=== PATIENT | male | born 1980 | race Caucasian/White ===

== ENCOUNTER 2017-05-23 08:33 | Outpatient (CLI) | payer OTHER ==
--- NOTE | 2017-05-23 11:49 | CT ---
CT ORBITS NONCONTRAST: Date: 05-23-17 History: 36-year-old male with esotropia H50, strabismus, and high myopia. FINDINGS: The bilateral extraocular muscles are symmetrical and within normal limits in size. The optic nerves are also bilaterally symmetrical in size. There is no intraorbital edema or mass. The bilateral globe s are enlarged. The lenses are bilaterally absent. The visualized portions of the maxillary, sphenoid , ethmoid, and right frontal sinuses are clear. Mild mucosal thickening at the left frontal recess. T he rest of the left frontal sinus is clear. There is a right sided cochlear implant, with lead in the basal and middle turns of the cochlea. There is a right sided intact-canal wall mastoidectomy defect associated with this, incompletely imaged. IMPRESSION: 1. Bilateral macrophthalmia. 2. No asymmetry of the extraocular muscles. 3. Status post bilateral cataract surgery. 4. Right cochlear implant and right wall-up mastoidectomy. POS: [facility]
== END 2017-05-23 08:34 | disposition home or self-care (01) ==
LOC: SCSCT 08:33
PROVIDERS: ATTEND Ophthalmology
DX: H50.00 Unspecified esotropia (principal); Q00-Q99 Congenital malformations, deformations and chromosomal abnormalities; Z96.21 Cochlear implant status; Z98.890 Other specified postprocedural states
CPT/HCPCS: 70480

== ENCOUNTER 2017-07-16 08:06 | Outpatient (CLI) | payer OTHER ==
--- NOTE | 2017-07-16 08:40 | RAD ---
LEFT HIP 2 VIEWS: Date: 07/16/17 HISTORY: Left hip pain. FINDINGS: Mild joint space narrowing, subchondral sclerosis, and osteophytosis. Femoral head contour is maintai kehinde. No acute fracture, dislocation, or aggressive osseous erosions. IMPRESSION: Mild osteoarthritis left hip. POS: [facility]
--- NOTE | 2017-07-16 09:20 | CT ---
CT LUMBAR SPINE: Date: 07/16/17 COMPARISON: None. HISTORY: Low back pain with numbness down both legs, lumbar stenosis with neurogenic claudication. TECHNIQUE: Serial axial CT imaging is obtained at 3 mm intervals from lower thoracic spine through lower sacrum without contrast. Coronal and sagittal reformatted imaging obtained. FINDINGS: Evaluation for central canal and/or neural foraminal stenosis is limited on routine CT. There is no anterolisthesis or retrolisthesis seen within the lumbar spine. Incidental note is made of an exophytic small hypodense lesion emanating from the posterior mid pole of the right kidney measuring in the 1.0 cm range. Its Hounsfield units are slightly above that expec karen for a simple cyst and thus, follow-up renal ultrasound is suggested. T12-L1: No osseous cause of significant central canal or neural foraminal stenosis. L1-2: Mild bilateral facet hypertrophy, right greater than left. No osseous cause of significant central ca nal or neural foraminal stenosis. L2-3: Mild bilateral facet hypertrophy. No osseous cause of significant central canal or neural foraminal s tenosis. L3-4: Prominent bilateral facet hypertrophy. Mild disc bulge. Probable mild central canal stenosis and mild bilateral neural foraminal stenosis. L4-5: Prominent bilateral facet hypertrophy with mild bilateral neural foraminal stenosis, left greater marcella n right. No osseous cause of significant central canal stenosis. L5-S1: Severe right-sided facet hypertrophy noted with osteophyte encroachment on the right neural foramen a nd severe right neural foraminal stenosis. No osseous cause of significant central canal or left neur al foraminal stenosis. No acute osseous abnormality. No worrisome lytic or blastic bone lesion. IMPRESSION: 1. Multilevel degenerative changes noted within the lumbar spine, which include severe facet hypertr ophy on the right at L5-S1 with osteophyte encroachment on the right neural foramen and associated si gnificant neural foraminal stenosis. 2. Small hypodense lesion within the right kidney, for which follow-up renal ultrasound is advised. CODE T. POS: [facility]
== END 2017-07-16 08:07 | disposition home or self-care (01) ==
LOC: TBSIIMAG 08:06
PROVIDERS: ATTEND Anesthesiology Pain Medicine
DX: M48.062 Spinal stenosis, lumbar region with neurogenic claudication (principal); M47.896 Other spondylosis, lumbar region; M46.96 Unspecified inflammatory spondylopathy, lumbar region; M99.81 Other biomechanical lesions of cervical region; M25.78 Osteophyte, vertebrae; M16.12 Unilateral primary osteoarthritis, left hip; N28.9 Disorder of kidney and ureter, unspecified
CPT/HCPCS: 72131

== ENCOUNTER 2017-07-27 08:10 | Outpatient (CLI) | payer OTHER ==
--- NOTE | 2017-07-27 10:16 | ULT ---
BILATERAL RENAL ULTRASOUND: Date: 07/27/17 COMPARISON: CT of lumbar spine without contrast dated 07/16/17. HISTORY: Evaluate renal lesion identified on prior CT examination within the posterior aspect of mid pole righ t kidney. TECHNIQUE: Multiplanar Pérez scale sonographic imaging of the kidneys and urinary bladder obtained. FINDINGS: Body habitus limits detailed evaluation of both kidneys, as does shadowing from bowel gas. Right kidney measures 14.4 x 5.6 x 5.7 cm. Left kidney measures 14.5 x 5.6 x 5.8 cm. No renal mass, h ydronephrosis, or stone is appreciated on this exam. Urinary bladder appears grossly unremarkable. The CT examination, which partially visualized the right kidney, demonstrates a 1.1 cm exophytic hypo dense lesion with Hounsfield unit estimates of approximately 10-15. This suggests that this likely re presents a small cyst. IMPRESSION: Previously noted small hypodense lesion emanating from right kidney on recent CT examination cannot b e visualized on ultrasound, likely secondary to technique. A cyst is favored. As a conservative measu re, a follow-up CT examination of the abdomen is suggested in 6 months-1 year is advised to confirm s tability. POS: [facility]
== END 2017-07-27 08:11 | disposition home or self-care (01) ==
LOC: SCSULT 08:10
PROVIDERS: ATTEND Family Medicine
DX: N28.1 Cyst of kidney, acquired (principal)
CPT/HCPCS: 76770

== ENCOUNTER → 2017-10-09 | Day surgery (SDC) | payer OTHER ==
[2017-10-05 11:36] VITALS: BMI 43.9
[~2017-10-09] MED LIST: Ketamine 50 MG/ML VIAL ONE; PROPOFOL 200 MG/20 ML VIAL ONE
--- NOTE | 2017-10-09 12:31 | OP ---
DATE OF PROCEDURE: 10/09/2017 GI ENDOSCOPY NOTE SURGEON: Luther Ko M.D. MATERIALS PLANNING MANAGER SURGEON: None. PROCEDURE: Esophagogastroduodenoscopy with balloon dilation of the esophagus. INDICATIONS: 1. Esophageal dysphagia. 2. Followup of esophageal stricture. MEDICATIONS: See anesthesia record. FINDINGS: After discussion of the risks, benefits, and alternatives of the procedure, informed conse nt was obtained and witnessed. Pre-endoscopic cardiopulmonary examination was satisfactory. Timeout was performed before sedation was achieved. Sedation was achieved with anesthesia assistance in the endoscopy unit. A Pentax adult upper endoscope was placed into the oropharynx and passed through th e cricopharyngeus under direct visualization. The proximal, mid, and distal esophageal mucosa all ap peared normal at the GE junction, which is at 42 cm from the incisors. There is some circumferential scar tissue representing mild stricture. This is essentially unchanged in appearance from his prior examinations. The stricture is mild with easy passage of the endoscope beyond the stricture. The e ndoscope was passed beyond the GE junction and into the stomach. Forward and retroflexed views of th e entire gastric mucosa were obtained. The gastric mucosa was normal. The endoscope was advanced th rough the pylorus and into the first and second portions of the duodenum, which also appeared normal. At this point, we used a, through the scope, balloon dilator and passed this across the GE junction . We serially dilated the esophagus at the GE junction to sizes of 18 mm, then 19 mm, then finally t o 20 mm. Following dilation, the GE junction was again inspected. There was some mild mucosal disru ption at the area. The upper endoscope was then completely withdrawn and the patient allowed to ruel fouzia. The patient tolerated the procedure well. There were no immediate post-procedure complications . IMPRESSION: 1. Distal esophageal stricture at the GE junction, mild, successfully serially dilated with balloon to 18, then 19, then 20 mm. 2. Otherwise, normal esophagogastroduodenoscopy. RECOMMENDATIONS: 1. Continue daily PPI. 2. Follow up in the GI clinic as needed.
== END ==
LOC: SDC 09:10
PROVIDERS: ATTEND Internal Medicine
PROC: 0D758ZZ Dilation of Esophagus, Via Natural or Artificial Opening Endoscopic (ICD-10-PCS; principal; 2017-10-09)
DX: K22.2 Esophageal obstruction (principal); Z88.2 Allergy status to sulfonamides; Z79.899 Other long term (current) drug therapy

== ENCOUNTER 2018-10-11 08:49 | Outpatient (CLI) | payer OTHER ==
[2018-10-11] MEDS ORDERED: Iopamidol 370 76% 100 ML VIAL ONE (09:00)
--- NOTE | 2018-10-11 12:24 | CT ---
CT ABDOMEN WITH AND WITHOUT IV CONTRAST: Date: 10/11/18 HISTORY: Kidney cysts. FINDINGS: There is mild infiltrate versus atelectatic change at the left lung base. The liver demonstrates decr eased attenuation compared to the spleen consistent with fatty infiltration. No hepatic mass or abnor mal biliary ductal dilatation is seen. No calcified gallstones are noted. The spleen, pancreas, right adrenal gland, and left kidney are normal. There is a 15 mm macroscopic fat containing left adrenal nodule consistent with lipoma or myelolipoma . There is a 1.0 cm exophytic mass arising from the posterior cortex of the right kidney with low atten uation values and no postcontrast enhancement, consistent with cyst. No renal calculi are seen on eit her side. There is normal contrast excretion by the kidneys into the ureters. No hydroureteronephrosi s identified. No free air, free fluid, or lymphadenopathy seen in the abdomen. The aorta is of normal caliber. Ther e are mild degenerative changes in the spine. IMPRESSION: 1. Fatty liver. 2. 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 3. Right renal cyst. POS: [facility]
== END 2018-10-11 08:50 | disposition home or self-care (01) ==
LOC: SCSCT 08:49
PROVIDERS: ATTEND Family Medicine
DX: N28.1 Cyst of kidney, acquired (principal); K76.0 Fatty (change of) liver, not elsewhere classified
CPT/HCPCS: 74170

== ENCOUNTER 2018-10-21 09:59 | Inpatient (IN) | payer OTHER ==
[2018-10-21 10:38] LABS: #Basophils 0.1 thou/uL (0.0-0.2); #Eosinphils 0.2 thou/uL (0.0-0.7); #Lymphocytes 1.6 thou/uL (1.20-3.40); #Monocytes 0.4 thou/uL (0.11-0.59); #Neutrophils 5.6 thou/uL (1.40-6.50); %Basophils 0.8 % (0.0-1.0); %Eosinophils 2.9 % (0.0-10.0); %Lymphocytes 19.9 % (21.0-51.0); %Monocytes 5.4 % (0.0-10.0); Hemoglobin 16.6 g/dL (14.0-18.0); Mean Corpuscular HGB CONC 34.3 g/dL (32.0-36.0); Mean Corpuscular Hemoglobin 31.1 pg (27.0-31.0); Mean Corpuscular Volume 90.7 fL (78.0-98.0); Platelet Count 256 thou/uL (130-400); Red Blood Cell (RBC) Count 5.34 mill/uL (4.70-6.10); White Blood Cell (WBC) Count 7.9 thou/uL (4.8-10.8)
[2018-10-21] MEDS ORDERED: Enoxaparin Sodium 30 MG/0.3 ML SYRINGE ONE (10:59)
[2018-10-21] MEDS ORDERED: Enoxaparin Sodium 100 MG/ML SYRINGE ONE (10:59)
[2018-10-21 11:01] LABS: ALT (SGPT) 50 U/L (8-55); AST (SGOT) 30 U/L (5-34); Albumin 4.6 g/dL (3.5-5.0); Alkaline Phosphatase 71 U/L (40-150); Anion Gap 12 mmol/L (10-20); BUN (Urea Nitrogen) 10 mg/dL (8.9-20.6); Bilirubin, Total 0.8 mg/dL (0.2-1.2); Calc. Creatinine Clearance 0 mL/min (70-130); Calcium 9.9 mg/dL (7.8-10.44); Carbon Dioxide 29 mmol/L (22-29); Chloride 102 mmol/L (98-107); Estimated GFR-MDRD 75; Globulin 3.5 g/dL (2.4-3.5); Glucose 124 mg/dL (70-105); Lipase 34 U/L (8-78); Potassium 3.9 mmol/L (3.5-5.1); Protein, Total 8.1 g/dL (6.0-8.3); Sodium 139 mmol/L (136-145)
[2018-10-21] MEDS ORDERED: Enoxaparin Sodium 40 MG/0.4 ML SYRINGE ONE (11:10)
--- NOTE | 2018-10-21 11:26 | CT ---
CT ANGIO CHEST PERFORMED WITH IV CONTRAST ENHANCEMENT WITH 3D RECONSTRUCTIONS: Date: 10/21/18 HISTORY: Chest pain. FINDINGS: There is some minimal linear atelectasis or scarring in the lung bases. There is no infiltrative proc ess or pulmonary nodules. There is no significant mediastinal or hilar adenopathy. The thoracic aorta is normal in caliber. There is good pulmonary artery opacification with evidence for extensive upper and lower lobe pulmona ry emboli involving the segmental and subsegmental branches. No saddle embolus. No evidence of right ventricular strain. The visualized liver parenchyma shows no focal findings. There is suggestion of fatty change. IMPRESSION: Extensive bilateral pulmonary emboli. Findings telephoned to Dr. Patel. CODE CR. POS: [facility]
[2018-10-21] MEDS ORDERED: ISOVUE-370 76%-LOCM 1 ML ONE (13:13)
[2018-10-21 13:41] LABS: Troponin I Less than 0.010 ng/mL (< 0.028)
[2018-10-21 14:38] VITALS: BMI 43.3
[2018-10-21] MEDS ORDERED: Acetaminophen 325 MG TAB PO PRN (16:37)
[2018-10-21] MEDS ORDERED: Ondansetron PF 4 MG/2 ML Vial IVP PRN (16:37)
[2018-10-21] MEDS ORDERED: Ondansetron ODT 4 MG TAB PO PRN (16:37)
[2018-10-21] MEDS ORDERED: Dextrose 50% Abboject 50 ML SYRINGE SLOW IVP PRN (16:50)
[2018-10-21] MEDS ORDERED: Dextrose 5% in Water 1,000 ML IV PRN (16:50)
[2018-10-21] MEDS ORDERED: HumaLOG 300 UNITS/3 ML VIAL SC PRN ×2 (16:50)
[2018-10-21 16:56] LABS: Troponin I 0.011 ng/mL (< 0.028)
[2018-10-21] MEDS: Apixaban 5 MG TAB PO SCH (21:07)
--- NOTE | 2018-10-21 21:53 | HP ---
PRIMARY CARE PHYSICIAN: Dr. Workman. CHIEF COMPLAINT: Shortness of breath. HISTORY OF PRESENT ILLNESS: Mr. Aguero is a 38-year-old male with past medical history of diabetes mellitus type 2, gout, hyperlipidemia, who had presented to [facility] earlier today after he experienced some chest pain, right shoulder pain and shortness of breath that started late last night. He states that his chest pain worsened with deep breathing. He states that he had traveled to [place] and [facility] roughly 1-1/2 weeks ago and [place] last week and he had returned home last prior to noticing symptoms start the next morning. He states that the symptoms gradually worsened up until late last night. He underwent a CTA of the chest, which revealed extensive bilateral pulmonary emboli. Therefore, he was treated with subcutaneous Lovenox. The patient's blood pressure and other vital signs remained stable and he had remained stable on room air. He had denied any fever, chills, any headache, blurred vision, dizziness, any further chest pain, palpitations, shortness of breath, abdominal pain, nausea, or vomiting. He had denied any history of blood clots in the past; however, does state that he has a strong family history. REVIEW OF SYSTEMS: All other systems reviewed and found to be negative unless mentioned in the HPI. PAST MEDICAL HISTORY: Hyperlipidemia, diabetes mellitus type 2, gout, sleep apnea, wears a CPAP at night. PAST SURGICAL HISTORY: Cochlear implant on the left, and cataract surgery. PSYCHIATRIC HISTORY: None. SOCIAL HISTORY: The patient denies alcohol, tobacco, or illicit drug use. He currently lives at home with his girlfriend. KNOWN ALLERGIES: Sulfa. CURRENT HOME MEDICATIONS: 1. Omeprazole 20 mg oral b.i.d. 2. Allopurinol 200 mg oral daily. 3. Atorvastatin 5 mg oral daily. 4. Metformin 750 mg oral daily. 5. Vitamin D3 5000 units p.o. daily. PHYSICAL EXAMINATION: VITAL SIGNS: BP 132/76, pulse 105, respirations 20, temperature 97.6, O2 saturation 97% on room air. GENERAL: The patient is awake, alert, and oriented x3. He is currently lying comfortably in bed and in no acute distress at this time. HEENT: Atraumatic, normocephalic. Pupils are round and reactive to light. Extraocular muscles intact. Moist mucous membranes noted. NECK: Soft and supple. Trachea midline. CARDIOVASCULAR: Positive S1 and S2. Regular rate and rhythm. No murmur auscultated. RESPIRATORY: Clear to auscultation bilaterally. No wheezes, rales, or rhonchi. ABDOMEN: Soft, nontender. Bowel sounds present. MUSCULOSKELETAL: Strength 5+ bilaterally upper and lower extremities. Moves all extremities equal. Pedal and radial pulses 2+ bilaterally. No edema noted. NEUROLOGIC: Cranial nerves 2 through 12 grossly intact. No focal deficits noted. Speech intact and normal. Gait not assessed. SKIN: Warm, dry and intact. No rash. No ulceration noted. PSYCHIATRIC: Good mood and affect. LABORATORY DATA: WBC 7.9, RBC 5.34, hemoglobin 16.6, hematocrit 48.4, platelet 256. INR 1.0, PT 13.0. Sodium 139, potassium 3.9, anion gap 12, BUN 10, creatinine 1.10, estimated GFR 75, glucose 124. Troponin less than 0.010 x2. Lipase 34. DIAGNOSTIC IMAGING: CTA of the chest revealed extensive bilateral pulmonary emboli. ASSESSMENT AND PLAN: 1. New bilateral pulmonary embolisms. The patient was given Lovenox in the ED and will be now started on Eliquis 10 mg p.o. b.i.d. for 7 days and then 5 mg oral twice daily thereafter. He will be monitored overnight for any signs of bleeding. 2. Hyperlipidemia. Continue home statin. 3. Diabetes mellitus type 2. Hold dose of metformin and continue with insulin sliding scale with frequent Accu-Cheks. 4. Deep venous thrombosis and gastrointestinal prophylaxis. 5. Code status, full code. DISPOSITION: The patient will likely be discharged home tomorrow and he will likely follow up with his PCP in the next 1 to 2 weeks. Job ID: [id number]
[2018-10-22 04:07] LABS: #Basophils 0.1 thou/uL (0.0-0.2); #Eosinphils 0.2 thou/uL (0.0-0.7); #Monocytes 0.6 thou/uL (0.11-0.59); #Neutrophils 5.6 thou/uL (1.40-6.50); %Basophils 1.1 % (0.0-1.0); %Eosinophils 2.8 % (0.0-10.0); %Lymphocytes 23.7 % (21.0-51.0); %Monocytes 6.4 % (0.0-10.0); %Neutrophils 65.9 % (42.0-75.0); Hemoglobin 15.4 g/dL (14.0-18.0); Mean Corpuscular HGB CONC 33.8 g/dL (32.0-36.0); Mean Corpuscular Hemoglobin 31.3 pg (27.0-31.0); Mean Corpuscular Volume 92.6 fL (78.0-98.0); Mean Platelet Volume 7.5 fL (7.4-10.4); Platelet Count 281 thou/uL (130-400); RBC Distribution Width 12.1 % (11.5-14.5); Red Blood Cell (RBC) Count 4.91 mill/uL (4.70-6.10); White Blood Cell (WBC) Count 8.5 thou/uL (4.8-10.8)
[2018-10-22 04:20] LABS: Anion Gap 15 mmol/L (10-20); BUN (Urea Nitrogen) 11 mg/dL (8.9-20.6); Calc. Creatinine Clearance 241 mL/min (70-130); Calcium 9.2 mg/dL (7.8-10.44); Carbon Dioxide 24 mmol/L (22-29); Chloride 105 mmol/L (98-107); Estimated GFR-MDRD Greater than 90; Glucose 101 mg/dL (70-105); Potassium 3.7 mmol/L (3.5-5.1); Sodium 140 mmol/L (136-145)
--- NOTE | 2018-10-22 08:55 | ULT ---
BILATERAL LOWER EXTREMITY VENOUS DUPLEX EXAM: Date: 10/22/18 Deep veins of both lower extremities evaluated with ultrasound and Doppler. Color Doppler, spectral a nalysis, and compression studies performed. INDICATION: Pulmonary emboli confirmed on CTA chest. Assess for deep vein thrombosis. FINDINGS: Deep veins of both lower extremities show normal blood flow and compression. No evidence of deep veno us thrombosis identified. IMPRESSION: No evidence of lower extremity deep venous thrombosis identified. POS: [facility]
[2018-10-22] MEDS ORDERED: Allopurinol 100 MG TAB PO SCH (09:00)
[2018-10-22] MEDS ORDERED: Atorvastatin Calcium 10 MG TAB PO SCH (09:00)
[2018-10-22] MEDS ORDERED: metFORMIN 500 MG TAB PO SCH (09:00)
[2018-10-22] MEDS: Apixaban 5 MG TAB PO SCH (09:10)
[2018-10-22 09:24] VITALS: BP 120/68; TEMP 98.1
--- NOTE | 2018-10-22 09:30 | ULT ---
BILATERAL UPPER EXTREMITY DEEP VEIN ULTRASOUND WITH GRAYSCALE AND DOPPLER COLORFLOW: INDICATIONS: History of pulmonary emboli. FINDINGS: The imaged deep venous system of each upper extremity is performed, which reveals patency and appropr iate compressibility/flow. IMPRESSION: No deep venous thrombosis of the bilateral upper extremities visualized. POS: [facility]
--- NOTE | 2018-10-22 22:17 | DIS ---
DATE OF ADMISSION: 10/21/2018 DATE OF DISCHARGE: 10/22/2018 DISCHARGE DIAGNOSIS: Acute pulmonary embolism. HISTORY OF PRESENT ILLNESS: The patient is a 38-year-old male, who initially traveled abroad, returned back from [place] and [facility] earlier this month, started having some shortness of breath and chest pain. He was seen in the ER, was found to have pulmonary embolism. His troponin x2 were negative. He did have a CTA, which indicated extensive bilateral pulmonary emboli. There was no evidence of right ventricular straining on the CAT scan. The patient felt well. He also had lower extremity venogram, which were normal and did not indicate any deep vein thrombosis. The patient was initially put on Lovenox. He was then transitioned to Eliquis, which he will take 10 mg twice a day for 7 days followed by 5 mg twice a day. I have advised him to follow up with his primary care doctor and he understands that. MEDICATIONS: 1. Eliquis 10 mg b.i.d. for 7 days. After that, he is going to take 5 mg b.i.d. 2. Vitamin D 5000 units daily. 3. Metformin 750 daily. 4. Allopurinol 200 mg daily. 5. Atorvastatin 5 mg daily. 6. Prilosec 20 mg b.i.d. PHYSICAL EXAMINATION: VITAL SIGNS: Temperature 98.1, 80, 20, 95% on room air, 120/68. GENERAL: He is awake, alert, and oriented x3. Does not appear in distress. CV: S1, S2 present. No murmurs, rubs, or gallops. ABDOMEN: Soft and nontender. Bowel sounds are present x2. Job ID: [id number]
[2018-10-29] MEDS ORDERED: Apixaban 5 MG TAB PO SCH (09:00)
== END 2018-10-22 11:01 | disposition home or self-care (01) | DRG 176 ==
LOC: ERS 09:59 → 2SE 14:12
PROVIDERS: ADMIT Family Medicine; ATTEND Family Medicine
DX: I26.99 Other pulmonary embolism without acute cor pulmonale (principal); Z68.41 Body mass index [BMI] 40.0-44.9, adult; E11.9 Type 2 diabetes mellitus without complications; E78.5 Hyperlipidemia, unspecified; M19.90 Unspecified osteoarthritis, unspecified site; M10.9 Gout, unspecified; G47.30 Sleep apnea, unspecified; E66.01 Morbid (severe) obesity due to excess calories; Z88.2 Allergy status to sulfonamides; Z98.42 Cataract extraction status, left eye
CPT/HCPCS: 36415; 36416; 71275; 80048; 80053; 83690; 84484; 85025; 85610; 93005; 93970; J1650; Q9966

== ENCOUNTER 2018-11-14 14:21 | Outpatient (CLI) | payer OTHER | END 2018-11-14 14:22 | disposition home or self-care (01) | LOC: ULT 14:21 | PROVIDERS: ATTEND Family Medicine | DX: I26.99 Other pulmonary embolism without acute cor pulmonale (principal); I08.1 Rheumatic disorders of both mitral and tricuspid valves | CPT/HCPCS: 93306 ==

== ENCOUNTER 2019-07-24 12:36 | Outpatient (CLI) | payer OTHER ==
--- NOTE | 2019-07-24 13:19 | CT ---
Exam: CT cervical spine without contrast HISTORY: Cervical radicular pain. Pain radiates to left shoulder COMPARISON: None FINDINGS: No craniocervical dissociation. Appropriate alignment of the lateral masses of C1 and C2. Intact odon toid process. Appropriate alignment of the facets. Soft tissue neck structures: No mass, lymphadenopathy or hematoma. No prevertebral soft tissue swelli ng. Upper mediastinum and lung apices: Unremarkable. Central spinal canal: Limited evaluation of the contents of the central spinal canal and neural vanita clinton due to technique. C2-C3: Loss of disc space height without significant central canal stenosis. Moderate right and left neural foraminal narrowing due to uncovertebral hypertrophy. C3-C4: Broad-based disc osteophyte complex. Mild central canal stenosis. Mild to moderate bilateral n eural foraminal narrowing due to uncovertebral hypertrophy. C4-C5: Broad-based disc osteophyte complex abuts the thecal sac. Mild central canal stenosis. Mild ri ght neural foramina due to uncovertebral hypertrophy. Patent left neural foramen. C5-C6: Broad-based disc osteophyte complex abuts the thecal sac. Mild mass effect upon the right jaiden cord. Mild central canal stenosis. Mild right neural foraminal narrowing due to uncovertebral hypertrophy. Left neural foramen is patent. C6-C7: Broad-based disc osteophyte complex abuts the thecal sac. No significant central canal stenosi s. Neural foramina are patent. C7-T1: No significant central canal stenosis or significant neural foraminal narrowing. Vertebral bodies: Cervical spine vertebral body height is maintained. No fracture. IMPRESSION: Multilevel disc osteophyte complexes. No evidence of high-grade central canal stenosis. Varying degre es of neural foraminal narrowing as detailed above. Transcribed Date/Time: 07/24/2019 1:33 PM
--- NOTE | 2019-07-24 13:45 | CT ---
CT OF THE LUMBAR SPINE 07/24/19 PROVIDED CLINICAL HISTORY: Back pain and bilateral leg pain. FINDINGS: Comparison is made with the CT examination dated 07/16/17. Lumbar alignment remains normal. Five lumbar vertebral bodies are again assumed. Vertebral body and i ntervertebral disc space heights appear maintained. There is no evidence for fracture. No evidence fo r concerning lytic or blastic bony lesion. The visualized extraspinal soft tissues demonstrate a stab le unenhanced CT appearance. At L1-2, there is no significant central canal or foraminal narrowing apparent. Mild bilateral facet arthritis. At L2-3, there is no significant central canal or foraminal narrowing apparent. Mild bilateral facet arthritis. At L3-4, there is bilateral facet arthritis and a broad based disc bulge. There is no significant carlos tral canal or foraminal narrowing apparent. At L4-5, there is advanced left facet arthritis and mild right facet arthritis. This results in sever e stenosis of the left neural foramen and appears more conspicuous than on prior, with potential for impingement on the exiting left L4 nerve root now demonstrated. At L5-S1, there is advanced bilateral facet arthritis, producing stable severe right foraminal narrow ing with associated impingement on the exiting right L5 nerve root. There is no significant left fora merced narrowing. There is a small focus of increased density seen posterior to the L5 vertebral body in the mid portion in the midline seen to best advantage on sagittal image 48 and axial image 64 that may reflect a small sequestered disc fragment. This measures about 5 mm in AP and transverse dimensi ons. IMPRESSION: 1. Lumbar facet arthritis producing foraminal narrowing as described, with increase in conspicui ty at L4-5 as described. 2. Possible sequestered disc fragment at posterior aspect of L5 as described. POS: [facility]
== END 2019-07-24 12:37 | disposition home or self-care (01) ==
LOC: TBSIIMAG 12:36
PROVIDERS: ATTEND Nurse Practitioner Family
DX: M48.061 Spinal stenosis, lumbar region without neurogenic claudication (principal); M47.816 Spondylosis without myelopathy or radiculopathy, lumbar region; M54.12 Radiculopathy, cervical region; M25.78 Osteophyte, vertebrae; M48.02 Spinal stenosis, cervical region; M47.817 Spondylosis without myelopathy or radiculopathy, lumbosacral region; M48.07 Spinal stenosis, lumbosacral region
CPT/HCPCS: 72125; 72131

== ENCOUNTER 2020-01-25 15:44 | Emergency (ER) | payer OTHER ==
[~2020-01-25 15:44] MED LIST changes: +Iopamidol-370 76% 500 ML 1 ML ONE; -Ketamine 50 MG/ML VIAL ONE; -PROPOFOL 200 MG/20 ML VIAL ONE
[2020-01-25 16:30] LABS: #Basophils 0.1 thou/uL (0.0-0.2); #Eosinphils 0.2 thou/uL (0.0-0.7); #Lymphocytes 2.1 thou/uL (1.20-3.40); #Monocytes 0.4 thou/uL (0.11-0.59); #Neutrophils 5.2 thou/uL (1.40-6.50); %Basophils 1.4 % (0.0-1.0); %Eosinophils 3.1 % (0.0-10.0); %Lymphocytes 25.5 % (21.0-51.0); %Monocytes 5.3 % (0.0-10.0); %Neutrophils 64.7 % (42.0-75.0); Hemoglobin 16.3 g/dL (14.0-18.0); Mean Corpuscular HGB CONC 35.2 g/dL (32.0-36.0); Mean Corpuscular Volume 90.9 fL (78.0-98.0); Mean Platelet Volume 7.9 fL (7.4-10.4); Platelet Count 253 thou/uL (130-400); RBC Distribution Width 12.3 % (11.5-14.5); Red Blood Cell (RBC) Count 5.09 mill/uL (4.70-6.10); White Blood Cell (WBC) Count 8.1 thou/uL (4.8-10.8)
[2020-01-25 16:41] LABS: PTT 30.4 sec (22.9-36.1)
[2020-01-25 16:42] LABS: D-Dimer Test 0.35 *mcg/mL (0.27-0.43); INR-International Normal Ratio 1.1
[2020-01-25 16:51] LABS: ALT (SGPT) 41 U/L (8-55); AST (SGOT) 26 U/L (5-34); Albumin 4.2 g/dL (3.5-5.0); Alkaline Phosphatase 68 U/L (40-110); Anion Gap 15 mmol/L (10-20); BUN (Urea Nitrogen) 11 mg/dL (8.9-20.6); Bilirubin, Total 0.5 mg/dL (0.2-1.2); Calc. Creatinine Clearance 0 mL/min (70-130); Calcium 8.7 mg/dL (7.8-10.44); Carbon Dioxide 26 mmol/L (22-29); Chloride 103 mmol/L (98-107); Globulin 3.5 g/dL (2.4-3.5); Glucose 147 mg/dL (70-105); Magnesium 1.8 mg/dL (1.6-2.6); Potassium 3.9 mmol/L (3.5-5.1); Protein, Total 7.7 g/dL (6.0-8.3); Sodium 140 mmol/L (136-145)
--- NOTE | 2020-01-25 16:58 | RAD ---
CHEST ONE VIEW: History: Chest pain Comparison: None FINDINGS: Lungs are clear. No pneumothorax or effusion. Cardiac silhouette and mediastinal contours are within normal limits. No acute osseous abnormality. IMPRESSION: No acute intrathoracic abnormality. POS: [facility]
--- NOTE | 2020-01-25 17:02 | ULT ---
ULTRASOUND RIGHT LOWER EXTREMITY VENOUS DOPPLER: History: Pain and edema Comparison: None FINDINGS: Real-time grayscale, color and spectral analysis of the right lower extremity venous system was perfo rmed. The common femoral, femoral, proximal and greater saphenous, and deep veins as well as the popl iteal and posterior tibial veins were interrogated. Normal flow, augmentation and compression. IMPRESSION: No deep venous thrombosis. POS: [facility]
--- NOTE | 2020-01-25 17:24 | CT ---
CT ANGIOGRAM THORAX WITH IV CONTRAST AND 3-D RECONSTRUCTIONS CLINICAL INDICATION: History of multiple pulmonary emboli. Patient has developed right leg pain after a airplane flight on e day ago. Posterior chest pain. COMPARISON: 10/21/2018 FINDINGS: Pulmonary arteries: No filling defects are seen in the pulmonary arteries to suggest a pulmonary embo chelsy. Aorta: The aorta is normal in caliber without evidence of an aortic dissection. Lungs: Calcified granuloma right middle lobe is present. Minimal linear atelectasis versus scarring i s seen at the left lung base. No consolidation or pleural fluid is identified. Large airways are patent Mediastinum: No enlarged lymph nodes by CT size criteria. Thyroid gland: Normal in appearance where visualized Osseous structures: No suspicious lytic or sclerotic osseous lesion. Chest wall: No abnormality visualized. Upper abdomen: Within normal limits for phase of imaging. IMPRESSION: 1. No CT evidence of a pulmonary embolus.
[2020-01-25 18:29] LABS: Bilirubin Negative (Negative); Blood, Urine Negative (Negative); Clarity Clear (Clear); Glucose, Urine (Dipstick) Normal (Negative); Ketone, Urine Negative (Negative); Leukocyte Negative Leu/uL (Negative); Nitrite Negative (Negative); Protein, Urine (Dipstick) Negative (Neg-Trace); Urobilinogen Normal mg/dL (Less than 2); pH, Urine 5.5 (5.0-9.0)
== END 2020-01-25 19:03 | disposition home or self-care (01) ==
LOC: ERS 15:44
DX: I87.009 Postthrombotic syndrome without complications of unspecified extremity (principal); E11.9 Type 2 diabetes mellitus without complications; E78.5 Hyperlipidemia, unspecified; M10.9 Gout, unspecified; G47.30 Sleep apnea, unspecified
CPT/HCPCS: 71045; 71275; 80053; 81003; 83735; 83880; 84439; 84443; 84484; 85025; 85379; 85610; 85730; 93005; Q9967